=== PATIENT | female | born 1955 | race Caucasian/White ===

== ENCOUNTER 2018-06-27 09:32 | Observation (INO) | payer MEDICARE ==
[2018-06-27] VITALS (15 sets, daily range): BP systolic 94–129; BP diastolic 41–80
[~2018-06-27] VITALS: Ht 170.2 cm; Wt 53.6 kg
[2018-06-27] MEDS ORDERED: ESTR0.5T PO (10:48)
[2018-06-27] MEDS ORDERED: DULO60CA64 PO (10:54)
[2018-06-27] MEDS ORDERED: IMMU2VIA (10:54)
[2018-06-27] MEDS ORDERED: CLON1TAB12 PO (10:54)
[2018-06-27] MEDS ORDERED: HYDR-3972 PO (10:54)
[2018-06-27] MEDS ORDERED: TRAM50TA2 PO (10:54)
[2018-06-27 10:58] LABS: BASOPHILS % (AUTO) 0.4 % (0-1); EOSINOPHILS # (AUTO) 0.2 X10'3 (0-0.9); EOSINOPHILS % (AUTO) 2.4 % (0-6); HEMATOCRIT 33.7 % (35.0-45.0); HEMOGLOBIN 11.5 g/dl (12.0-16.0); LYMPHOCYTES # (AUTO) 1.5 X10'3 (1.1-4.8); MEAN CORPUSCULAR HEMOGLOBIN 31.6 PG (27.0-31.0); MEAN CORPUSCULAR VOLUME 92.9 FL (78-98); MEAN PLATELET VOLUME 7.7 FL (7.4-10.4); MONOCYTES # (AUTO) 0.5 X10'3 (0-0.9); NEUTROPHILS # (AUTO) 4.5 X10'3 (1.8-7.7); NEUTROPHILS % (AUTO) 68.2 % (42-75); PLATELET COUNT 245 X10'3 (140-440); RED BLOOD COUNT 3.63 X10'6 (4.20-5.60); RED CELL DISTRIBUTION WIDTH 15.5 % (11.5-14.5); WHITE BLOOD COUNT 6.6 X10'3 (4.5-11.0)
[2018-06-27 11:12] LABS: PARTIAL THROMBOPLASTIN TIME 25 SECONDS (22-32)
[2018-06-27 11:24] LABS: ALANINE AMINOTRANSFERASE 35 U/L (12-78); ALBUMIN/GLOBULIN RATIO 0.9 (1.1-1.5); ALKALINE PHOSPHATASE 103 IU/L (46-116); ANION GAP 4 (8-16); ASPARTATE AMINO TRANSFERASE 28 U/L (10-37); BILIRUBIN,TOTAL 0.3 MG/DL (0.1-1.0); BLOOD UREA NITROGEN 6 MG/DL (7-18); BUN/CREATININE RATIO 9.7 (6.6-38.0); CALCIUM 8.7 MG/DL (8.5-10.1); CHLORIDE 104 MMOL/L (99-107); CREATININE 0.62 MG/DL (0.40-0.90); GLUCOSE 94 MG/DL (70-104); POTASSIUM 3.9 MMOL/L (3.5-5.1); SODIUM 136 MMOL/L (135-145); TOTAL CARBON DIOXIDE 27.6 MMOL/L (24-32); TOTAL PROTEIN 6.2 G/DL (6.4-8.2); eGFR > 90 ML/MIN
[2018-06-27] MEDS ORDERED: ringers solution, lacted 1,000 ML IV SCH ×2 (12:13→13:34)
[2018-06-27] MEDS ORDERED: proCHLORperazine 10 MG/2 ml inj IV PRN (12:15)
[2018-06-27] MEDS ORDERED: meperidine/PF 25mg/ml syringe IV PRN ×3 (12:15)
[2018-06-27] MEDS ORDERED: ondansetron/PF 4mg/2ml inj IV PRN ×3 (12:15→15:55)
[2018-06-27] MEDS ORDERED: morphine 4 MG/ML inj SYRINge IV PRN ×6 (12:15→13:37)
[2018-06-27] MEDS ORDERED: fentaNYL/PF 50MCG/1 ML 2ML syringe ONE (13:22)
[2018-06-27] MEDS ORDERED: propofol inj 20 ML IV ONE (13:24)
[2018-06-27] MEDS ORDERED: LIDOcaine 2% (20mg/ml) 5ml vial ONE (13:24)
[2018-06-27] MEDS ORDERED: dexamethasone sod phosphate 4mg/ml inj. ONE (13:27)
[2018-06-27] MEDS ORDERED: ondansetron/PF 4mg/2ml inj ONE ×2 (13:27→13:50)
[2018-06-27] MEDS ORDERED: ROPIVAcaine 0.5% (5mg/ml) 30ml vial ONE (13:29)
[2018-06-27] MEDS ORDERED: vancomycin 1,000mg inj ONE (13:29)
[2018-06-27] MEDS ORDERED: ketorolac trometh. 30mg/ml inj. ONE ×2 (13:29→15:10)
[2018-06-27] MEDS ORDERED: fentaNYL/PF 50MCG/1 ML 2ML syringe IV PRN ×2 (13:35)
[2018-06-27] MEDS ORDERED: enalaprilat dihydrate 2.5mg/2ml vial IV PRN (13:35)
[2018-06-27] MEDS ORDERED: hydrALAZINE 20mg/ml inj. IV PRN (13:35)
[2018-06-27] MEDS ORDERED: sevoflurane 250ml liquid IH ONE (13:50)
[2018-06-27] MEDS ORDERED: ePHEDrine 50MG/ML INJ. ONE (14:42)
[2018-06-27] MEDS ORDERED: magnesium hydroxide 30ml (MOM) UD suspension PO PRN (15:55)
[2018-06-27] MEDS ORDERED: oxyCODONE IR 5mg (immed. release) tablet PO PRN (15:55)
[2018-06-27] MEDS ORDERED: bisacodyl 10mg suppository rectal RC PRN (15:55)
[2018-06-27] MEDS ORDERED: diphenhydrAMINE 25mg capsule PO PRN ×2 (15:55)
[2018-06-27] MEDS ORDERED: acetaminophen 325mg tablet PO PRN (15:55)
[2018-06-27] MEDS ORDERED: HYDROmorphone 1 mg/ml syringe IV PRN ×2 (15:55)
[2018-06-27] MEDS ORDERED: TRANEXAMIC ACID IV ONE ×2 (15:55→19:00)
[2018-06-27] MEDS ORDERED: traMADol 50MG tablet PO PRN (15:55)
[2018-06-27] MEDS ORDERED: NORMAL SALINE IV ONE ×2 (15:55→19:00)
[2018-06-27] MEDS ORDERED: HYDROcodone/acetaminophen 10/325mg tab PO PRN (15:55)
[2018-06-27] MEDS: ceFAZolin 1GM/D5W- ADD-VANTAGE 50 ML IV SCH (17:46)
[2018-06-27] MEDS: potassium cl 20mEq in 1/2 NS 1,000 ML IV SCH ×2 (17:46→23:53)
[2018-06-27] MEDS ORDERED: vancomycin/NS 1 GM ADD-VANTAGE 250 ML IV SCH (20:00)
[2018-06-27] MEDS: ketorolac tromethamine 15mg/ml inj. IV SCH (20:21)
[2018-06-27] MEDS: gabapentin 300mg capsule PO SCH (20:30)
[2018-06-27] MEDS: acetaminophen 325mg tablet PO SCH (20:30)
[2018-06-27] MEDS ORDERED: sennosides 8.6mg tablet PO SCH (21:00)
[2018-06-28] MEDS: ceFAZolin 1GM/D5W- ADD-VANTAGE 50 ML IV SCH (00:12)
[2018-06-28 02:00] VITALS: BP 106/56
[2018-06-28] MEDS: acetaminophen 325mg tablet PO SCH ×3 (02:00→13:44)
[2018-06-28] MEDS: ketorolac tromethamine 15mg/ml inj. IV SCH ×3 (02:04→13:44)
[2018-06-28] MEDS: potassium cl 20mEq in 1/2 NS 1,000 ML IV SCH (03:42)
[2018-06-28] MEDS ORDERED: ringers solution, lacted 1,000 ML IV SCH (05:00)
[2018-06-28] MEDS ORDERED: VANCOMYCIN INJ 1000 MG in NORMAL SALINE 250ml IV.SOLN IV ONE (05:30)
[2018-06-28] MEDS ORDERED: Cefazolin 2GM/50ML dext iso,osmotic IVPB IV ONE (05:30)
[2018-06-28] MEDS ORDERED: famotidine 20mg tablet PO ONE (05:30)
[2018-06-28 06:00] VITALS: BP 123/68
[2018-06-28 07:12] LABS: BASOPHILS % (AUTO) 0.2 % (0-1); EOSINOPHILS # (AUTO) 0.1 X10'3 (0-0.9); EOSINOPHILS % (AUTO) 1.1 % (0-6); HEMATOCRIT 23.9 % (35.0-45.0); LYMPHOCYTES # (AUTO) 1.2 X10'3 (1.1-4.8); LYMPHOCYTES % (AUTO) 10.2 % (21-51); MEAN CORPUSCULAR HEMOGLOBIN 31.4 PG (27.0-31.0); MEAN CORPUSCULAR HGB CONC 33.9 % (33.0-36.5); MEAN CORPUSCULAR VOLUME 92.8 FL (78-98); MONOCYTES # (AUTO) 0.6 X10'3 (0-0.9); MONOCYTES % (AUTO) 4.9 % (2-12); NEUTROPHILS # (AUTO) 9.6 X10'3 (1.8-7.7); NEUTROPHILS % (AUTO) 83.6 % (42-75); PLATELET COUNT 228 X10'3 (140-440); RED BLOOD COUNT 2.58 X10'6 (4.20-5.60); RED CELL DISTRIBUTION WIDTH 15.3 % (11.5-14.5); WHITE BLOOD COUNT 11.5 X10'3 (4.5-11.0)
[2018-06-28 07:38] LABS: ANION GAP 9 (8-16); CHLORIDE 104 MMOL/L (99-107); POTASSIUM 4.3 MMOL/L (3.5-5.1); SODIUM 135 MMOL/L (135-145); TOTAL CARBON DIOXIDE 22.3 MMOL/L (24-32)
[2018-06-28 07:54] LABS: HEMOGLOBIN 8.1 g/dl (12.0-16.0)
[2018-06-28] MEDS ORDERED: duloxetine 30mg CAPSULE.DR PO SCH (08:00)
[2018-06-28] MEDS ORDERED: clonazePAM 1mg tablet PO SCH (08:00)
[2018-06-28] MEDS: gabapentin 300mg capsule PO SCH ×2 (08:11→13:44)
[2018-06-28] MEDS ORDERED: aspirin 325mg tablet PO SCH (08:30)
[2018-06-28 10:00] VITALS: BP 95/52
[2018-06-28] MEDS: oxyCODONE IR 5mg (immed. release) tablet PO PRN ×2 (12:00→15:58)
[2018-06-28] MEDS ORDERED: GABA-532 PO (15:28)
[2018-06-28] MEDS ORDERED: celeCOXIB 100mg capsule PO SCH (20:00)
[2018-06-29] MEDS ORDERED: acetaminophen 325mg tablet PO PRN (15:55)
== END 2018-06-28 16:15 | disposition home or self-care (01) ==
LOC: PAS 09:32 → EDSTATUS 12:30 → ORTHO 4S 15:53
PROVIDERS: ADMIT Orthopaedic Surgery; ATTEND Orthopaedic Surgery
DX: S42.222A 2-part displaced fracture of surgical neck of left humerus, initial encounter for closed fracture (principal); M41.9 Scoliosis, unspecified; W18.2XXA Fall in (into) shower or empty bathtub, initial encounter; Y93.89 Activity, other specified; Y92.89 Other specified places as the place of occurrence of the external cause; Y99.8 Other external cause status
CPT/HCPCS: 23615; 36415; 73030; 76000; 80051; 80053; 85025; 85610; 85730; 87070; 93005; 96365; 96366; 96367; 96375; 96376; 97116; 97161; A4565; G0378; J0690; J1100; J1885; J2001; J2270; J2405; J2704; J2795; J3010; J3370; J7030; J7040; J7120; A7000

== ENCOUNTER 2019-05-22 12:36 | Outpatient (CLI) | payer MEDICARE ==
[~2019-05-22 12:36] MED LIST: CLON1TAB12 PO; DULO60CA65 PO; ESTR0.5T PO; GABA-532 PO; HYDR-3972 PO; IMMU2VIA; TRAM50TA2 PO
[2019-05-22 13:50] LABS: PARTIAL THROMBOPLASTIN TIME 27 SECONDS (22-32)
[2019-05-22 14:53] LABS: PLATELET FUNCTION (ADP) 85 SECONDS (63-104)
== END 2019-05-22 23:59 | disposition home or self-care (01) ==
LOC: LAB 12:36
PROVIDERS: ATTEND Otolaryngology
DX: D69.1 Qualitative platelet defects (principal); F17.200 Nicotine dependence, unspecified, uncomplicated
CPT/HCPCS: 36415; 85576; 85610; 85730

== ENCOUNTER 2019-05-26 08:38 | Outpatient (CLI) | payer MEDICARE ==
[2019-05-26 10:54] LABS: PLATELET FUNCTION (ADP) 81 SECONDS (63-104)
== END 2019-05-26 23:59 | disposition home or self-care (01) ==
LOC: LAB 08:38
PROVIDERS: ATTEND Otolaryngology
DX: D64.9 Anemia, unspecified (principal)
CPT/HCPCS: 36415; 85576

== ENCOUNTER 2019-07-15 15:32 | Outpatient (CLI) | payer MEDICARE ==
[2019-07-15 17:12] LABS: BASOPHILS % (AUTO) 0.5 % (0-1); EOSINOPHILS # (AUTO) 0.1 X10'3 (0-0.9); HEMATOCRIT 38.6 % (35.0-45.0); HEMOGLOBIN 12.9 g/dl (12.0-16.0); LYMPHOCYTES # (AUTO) 2.1 X10'3 (1.1-4.8); LYMPHOCYTES % (AUTO) 25.6 % (21-51); MEAN CORPUSCULAR HEMOGLOBIN 30.8 PG (27.0-31.0); MEAN CORPUSCULAR HGB CONC 33.5 g/dL (33.0-36.5); MEAN CORPUSCULAR VOLUME 92.1 FL (78-98); MEAN PLATELET VOLUME 9.1 FL (7.4-10.4); MONOCYTES # (AUTO) 0.6 X10'3 (0-0.9); NEUTROPHILS # (AUTO) 5.4 X10'3 (1.8-7.7); NEUTROPHILS % (AUTO) 65.9 % (42-75); PLATELET COUNT 393 X10'3 (140-440); RED BLOOD COUNT 4.19 X10'6 (4.20-5.60); RED CELL DISTRIBUTION WIDTH 16.1 % (11.5-14.5); WHITE BLOOD COUNT 8.2 X10'3 (4.5-11.0)
[2019-07-15 17:20] LABS: PARTIAL THROMBOPLASTIN TIME 27 SECONDS (22-32)
[2019-07-15 17:23] LABS: ALANINE AMINOTRANSFERASE 28 U/L (12-78); ALBUMIN 3.5 G/DL (3.4-5.0); ALKALINE PHOSPHATASE 87 IU/L (46-116); ANION GAP 8 (8-16); ASPARTATE AMINO TRANSFERASE 25 U/L (10-37); BILIRUBIN,TOTAL 0.4 MG/DL (0.1-1.0); BLOOD UREA NITROGEN 7 MG/DL (7-18); BUN/CREATININE RATIO 8.2 (6.6-38.0); CALCIUM 9.1 MG/DL (8.5-10.1); CHLORIDE 105 MMOL/L (99-107); CREATININE 0.85 MG/DL (0.40-0.90); GLUCOSE 85 MG/DL (70-104); POTASSIUM 3.9 MMOL/L (3.5-5.1); SODIUM 141 MMOL/L (135-145); TOTAL CARBON DIOXIDE 28.4 MMOL/L (24-32); TOTAL PROTEIN 7.1 G/DL (6.4-8.2); eGFR 67 ML/MIN
== END 2019-07-15 23:59 | disposition home or self-care (01) ==
LOC: LAB 15:32
PROVIDERS: ATTEND Otolaryngology
DX: D69.1 Qualitative platelet defects (principal); F17.200 Nicotine dependence, unspecified, uncomplicated
CPT/HCPCS: 36415; 80053; 85025; 85576; 85610; 85730

== ENCOUNTER → 2021-12-28 | Day surgery (SDC) | payer MEDICARE ==
[2021-12-20 15:40] LABS: BASOPHILS # (AUTO) 0.1 X10'3 (0-0.2); BASOPHILS % (AUTO) 0.7 % (0-1); EOSINOPHILS # (AUTO) 0.3 X10'3 (0-0.9); EOSINOPHILS % (AUTO) 2.3 % (0-6); LYMPHOCYTES # (AUTO) 1.7 X10'3 (1.1-4.8); MEAN CORPUSCULAR HEMOGLOBIN 28.2 PG (27.0-31.0); MEAN CORPUSCULAR HGB CONC 33.2 g/dL (33.0-36.5); MEAN CORPUSCULAR VOLUME 85.1 FL (78-98); MEAN PLATELET VOLUME 7.2 FL (7.4-10.4); MONOCYTES # (AUTO) 0.8 X10'3 (0-0.9); MONOCYTES % (AUTO) 6.9 % (2-12); NEUTROPHILS # (AUTO) 9.2 X10'3 (1.8-7.7); NEUTROPHILS % (AUTO) 76.1 % (42-75); PRE OP HEMATOCRIT 33.4 % (35.0-45.0); PRE OP HEMOGLOBIN 11.1 g/dL (12.0-16.0); PRE OP PLATELET COUNT 585 X10'3 (140-440); RED BLOOD COUNT 3.93 X10'6 (4.20-5.60); RED CELL DISTRIBUTION WIDTH 16.8 % (11.5-14.5)
[2021-12-20 16:00] LABS: ALBUMIN 3.2 G/DL (3.4-5.0); ALBUMIN/GLOBULIN RATIO 0.8 (1.1-1.5); ALKALINE PHOSPHATASE 143 IU/L (46-116); BLOOD UREA NITROGEN 8 MG/DL (7-18); BUN/CREATININE RATIO 13.6 (6.6-38.0); CALCIUM 8.8 MG/DL (8.5-10.1); CHLORIDE 97 MMOL/L (99-107); CREATININE 0.59 MG/DL (0.40-0.90); PRE OP ALT 26 U/L (30-65); PRE OP ANION GAP 9 (8-16); PRE OP AST 28 U/L (10-37); PRE OP BILIRUB, TOTAL 0.2 MG/DL (0.0-1.0); PRE OP GLUCOSE 95 MG/DL (70-104); PRE OP POTASSIUM 4.5 MMOL/L (3.4-5.1); PRE OP SODIUM 135 MMOL/L (135-145); TOTAL CARBON DIOXIDE 28.7 MMOL/L (24-32); eGFR > 90 ML/MIN
[2021-12-28] VITALS (7 sets, daily range): BP systolic 137–151; BP diastolic 69–80
[~2021-12-28] VITALS: Ht 167.6 cm; Wt 57.2 kg
[~2021-12-28] MED LIST changes: +BUPIVAcaine 0.5% inj/PF 30 ML ONE; +BUPIVAcaine 0.5% inj/PF 30 ml vial IJ ONE; -CLON1TAB12 PO; -ESTR0.5T PO; +FENTANYL CITRATE/PF 50 MCG/1 ML VIAL ONE; -HYDR-3972 PO; +HYDROcodone/acetaminophen 10/325mg tab PO ONE; +HYDROmorphone/PF 0.2 MG/ML SYRINGE IV PRN; -IMMU2VIA; +LIDOcaine 0.5% (5mg/ml) 50ml vial ONE; +MELO-100 PO; +OMEP20CA16 PO; +TRAZ-251 PO; +VANCOMYCIN INJ 1000 MG in NORMAL SALINE 200ml IV.SOLN IV ONE; +acetaminophen 1,000mg/100ml IV 100 ML IV PRN; +cefazolin/dext.iso 2gm/50ml IV ONE; +famotidine 20mg tablet PO ONE; +hydrALAZINE 20mg/ml inj. IV PRN; +ketorolac trometh. 30mg/ml inj. IV ONE; +labetalol 20mg/4ml (5mg/ml) syringe IV PRN; +meperidine/PF 25mg/ml syringe IV PRN; +methylPREDNISolone sod succ 125mg/2ml vial IM ONE; +methylPREDNISolone sod succ 125mg/2ml vial ONE; +midazolam 1 mg/ML 2ml injection ONE; +morphine 2 MG/ML inj. syringe IV PRN; +morphine 4 MG/ML inj SYRINge IV PRN; +ondansetron/PF 4mg/2ml inj IV PRN; +proCHLORperazine 10 MG/2 ml inj IV PRN; +propofol inj 20 ML IV ONE; +ringers solution, lacted 1,000 ML IV SCH
--- NOTE | 2021-12-28 13:46 | NUR ---
Received from OR via [facility] , accompanied by Anesthesiologist MAX and report given by Anesthesiolgist. PATIENT WITH 20G PIV IN LEFT UE RUNNING LR AT 100. DENIES PAIN TO RIGHT UE. IN SPLINT THAT IS CDI. VSS. + CAP REFILL TO ALL FINGERS AND ARE ALL PWD. Addendum: 12/28/21 at 1357 by Andrei Gomez RN, RN Amended: Links added.
--- NOTE | 2021-12-28 14:36 | NUR ---
ALL DISCHARGE INSTRUCTIONS COVERED. VSS. MEDICATED FOR PAIN RIGHT HAND. INSTRUCTED TO CONTINUE TO ELEVATE WRIST ABOVE ELBOW AND ELBOW ABOVE HEART. PATIENT AGREES TO COMPLY. PATIENT DRESSED ON GURNEY WITH ASSIST AND PATIENT TAKEN OUT VIA STUDENT NURSE TO PERSONAL VEHICLE WHERE FRIEND DROVE HER HOME. IV TAKEN OUT WITHOUT COMPLICATION. Addendum: 12/28/21 at 1510 by Andrei Gomez RN, RN Amended: Links added.
== END | disposition home or self-care (01) ==
LOC: PRE-OP 09:58
PROVIDERS: ATTEND Orthopaedic Surgery
DX: G56.01 Carpal tunnel syndrome, right upper limb (principal); G56.21 Lesion of ulnar nerve, right upper limb; M65.341 Trigger finger, right ring finger; M65.351 Trigger finger, right little finger; S66.114A Strain of flexor muscle, fascia and tendon of right ring finger at wrist and hand level, initial encounter; S66.116A Strain of flexor muscle, fascia and tendon of right little finger at wrist and hand level, initial encounter; J45.909 Unspecified asthma, uncomplicated; G89.4 Chronic pain syndrome; F32.A Depression, unspecified; K21.9 Gastro-esophageal reflux disease without esophagitis; M19.071 Primary osteoarthritis, right ankle and foot; M19.072 Primary osteoarthritis, left ankle and foot; M41.9 Scoliosis, unspecified; F41.9 Anxiety disorder, unspecified; Z79.899 Other long term (current) drug therapy; Z98.890 Other specified postprocedural states; Z87.442 Personal history of urinary calculi; Z20.822 Contact with and (suspected) exposure to COVID-19; Z87.891 Personal history of nicotine dependence; X58.XXXA Exposure to other specified factors, initial encounter; Y93.89 Activity, other specified; Y92.89 Other specified places as the place of occurrence of the external cause; Y99.8 Other external cause status
CPT/HCPCS: 26055; 26357; 36415; 64719; 64721; 80053; 82948; 85025; 93005; A6222; J0690; J1885; J2250; J2704; J2930; J3010; J3370; J3490; J7030; J7120; S0020; U0003; U0005; Z7506; Z7508; Z7512; A4215; A4618; A6455; A7000